=== PATIENT | female | born 1970 | race Caucasian/White ===

== ENCOUNTER → 2017-10-19 | Outpatient (CLI) | payer BC | END | disposition home or self-care (01) | LOC: KCIC 15:20 | DX: R05 Cough (principal); R06.2 Wheezing; R09.89 Other specified symptoms and signs involving the circulatory and respiratory systems | CPT/HCPCS: 71046 ==

== ENCOUNTER → 2018-01-11 | Outpatient (CLI) | payer BC | END | disposition home or self-care (01) | LOC: US 06:51 | DX: N83.8 Other noninflammatory disorders of ovary, fallopian tube and broad ligament (principal) | CPT/HCPCS: 76830; 76856 ==

== ENCOUNTER → 2019-03-28 | Outpatient (CLI) | payer OTHER ==
--- NOTE | 2019-03-28 16:48 | KCIC ---
Examination: FOOT LEFT 3V History: Left foot pain and swelling Comparison/Correlation: None Findings: Total 3 images of the left foot were obtained. Small calcaneal spur is present. No acute fracture or bony destruction. Soft tissues are unremarkable. Joint spaces are adequate. Impression: No acute process. Electronically signed by: Barry Tanner MD (03/28/2019 4:45 PM) [facility]
== END | disposition home or self-care (01) ==
LOC: KCIC 15:24
PROVIDERS: ATTEND Nurse Practitioner Family
DX: M77.32 Calcaneal spur, left foot (principal)
CPT/HCPCS: 73630